=== PATIENT | male | born 1940 | race Caucasian/White ===

== ENCOUNTER 2018-04-06 14:55 | Emergency (ER) | payer MEDICARE, OTHER ==
[~2018-04-06] VITALS: Ht 177.8 cm; Wt 99.0 kg
[2018-04-06 15:26] LABS: BASOPHILS % (AUTO) 0.4 % (0-1); EOSINOPHILS # (AUTO) 0.1 X10'3 (0-0.9); EOSINOPHILS % (AUTO) 0.6 % (0-6); HEMATOCRIT 47.6 % (42.0-52.0); HEMOGLOBIN 15.6 g/dl (14.0-17.9); MEAN CORPUSCULAR HEMOGLOBIN 30.3 PG (27.0-31.0); MEAN CORPUSCULAR HGB CONC 32.7 % (33.0-36.5); MEAN CORPUSCULAR VOLUME 92.7 FL (78-98); MEAN PLATELET VOLUME 6.9 FL (7.4-10.4); MONOCYTES # (AUTO) 0.7 X10'3 (0-0.9); MONOCYTES % (AUTO) 7.1 % (2-12); NEUTROPHILS # (AUTO) 6.9 X10'3 (1.8-7.7); NEUTROPHILS % (AUTO) 70.9 % (42-75); PLATELET COUNT 230 X10'3 (140-440); RED BLOOD COUNT 5.13 X10'6 (4.70-6.10); RED CELL DISTRIBUTION WIDTH 14.4 % (11.5-14.5); WHITE BLOOD COUNT 9.7 X10'3 (4.5-11.0)
[2018-04-06 15:37] LABS: PROTHROMBIN TIME 10.2 SECONDS (9.0-12.0)
[2018-04-06 15:39] LABS: ALANINE AMINOTRANSFERASE 25 U/L (12-78); ALKALINE PHOSPHATASE 113 IU/L (46-116); ANION GAP 4 (8-16); ASPARTATE AMINO TRANSFERASE 19 U/L (10-37); BLOOD UREA NITROGEN 15 MG/DL (7-18); BUN/CREATININE RATIO 14.2 (5.4-32.0); CHLORIDE 100 MMOL/L (99-107); CREATININE 1.06 MG/DL (0.60-1.10); GLUCOSE 130 MG/DL (70-104); POTASSIUM 4.1 MMOL/L (3.5-5.1); SODIUM 138 MMOL/L (135-145); TOTAL CARBON DIOXIDE 33.7 MMOL/L (24-32); TOTAL PROTEIN 8.2 G/DL (6.4-8.2); eGFR 67 ML/MIN
[2018-04-06 17:09] VITALS: BP 144/78
[2018-04-07] MEDS ORDERED: POLY17PO10 PO (13:20)
== END 2018-04-06 17:16 | disposition home or self-care (01) ==
LOC: ER 14:57
DX: K56.699 Other intestinal obstruction unspecified as to partial versus complete obstruction (principal); R10.31 Right lower quadrant pain
CPT/HCPCS: 36415; 74176; 80053; 82948; 85025; 85610; 99285